=== PATIENT | male | born 1965 | race Caucasian/White ===

== ENCOUNTER 2017-07-28 18:59 | Inpatient (IN) | payer BC, OTHER ==
[~2017-07-28] VITALS: Ht 165.1 cm; Wt 115.2 kg
[~2017-07-28 18:59] MED LIST: ACTOS30 MG PO; ADVAIR HFA120 INHALA IH; ADVIL,NUPRIN,M200 MG PO; AMLODIPINE BESYL5 MG PO; Aldactone PO; Apresoline PO; Ascorbic Acid,Ester- PO; Aspirin E.C. PO; BENADRYL50 MG PO; BUMEX1 MG PO; CARVEDILOL25 MG PO; CHERATUSSIN AC473 ML PO; CLOPIDOGREL75 MG PO; COZAAR50 MG PO; Colace PO; Cozaar PO; DELTASONE20 M1 PO; DIOVAN80 MG; DIOVAN80 MG PO; DUONEB 2.5-0.5 M3 ML AEROSOL; Dulcolax PO; FLONASE16 G1 BOTH NARES; FUROSEMIDE40 MG PO; Folvite PO; K-Dur PO; LASIX40 MG PO; LEVAQUIN500 MG PO; LEVAQUIN750 MG PO; LEVEMIR FL100 UNIT/1 SC; LIPITOR20 MG PO; LOPRESSOR50 MG PO; LOSARTAN POTAS100 MG PO; LOVENOX100 MG/1 M SC; Lasix PO; Levaquin PO; Lopressor PO; METFORMIN HCL1000 MG PO; Maalox, Mylanta PO; Miralax, Glycolax PO; NIFEDIPINE ER90 MG PO; NITROSTAT0.4 MG SL; OXYCODONE HCL5 M1 PO; PIOGLITAZONE HC15 MG PO; PLAVIX75 MG PO; PREDNISONE10 MG PO; PREDNISONE20 MG PO; PROAIR HFA8.5 GM IH; Pepcid PO; SERTRALINE HCL100 MG; SERTRALINE HCL100 MG PO; SPIRIVA1 INHALATI IH; ST. JOSEPH ASPI81 MG PO; STIOLTO RESPIMAT4 GM IH; Senokot S,Pericolace PO; TYLENOL EXTRA500 MG PO; TYLENOL REGULA325 MG PO; Theragran PO; VENTOLIN HFA18 GM IH; VIAGRA50 MG PO; Xopenex IH; ZOLOFT100 MG PO; Zofran IV; Zoloft PO; oxyCODONE PO; predniSONE PO
[2017-07-28 19:59] LABS: HEMATOCRIT 32.4 % (38.0-50.0); MCH 34.2 PG (29.0-34.0); MCHC 34.3 G/DL (30.0-36.0); MCV 99.7 FL (86-99); MEAN PLAT.VOLUME 11.7 uM^3 (9.0-12.4); PLATELET COUNT 147 K/uL (156-360); RBC DIS.WIDTH-CV 14.2 % (11.8-14.6); RBC DIS.WIDTH-SD 51.1 % (39-53); RED BLOOD COUNT 3.25 M/uL (4.00-5.50); WHITE BLOOD COUNT 6.3 K/uL (4.1-10.2)
[2017-07-28 20:12] LABS: CHLORIDE 98 mEq/L (99-109); POTASSIUM 3.8 mEq/L (3.7-5.4); SODIUM 135 mEq/L (136-147)
[2017-07-28 20:15] LABS: ANION GAP 9 MEQ/L (2-14); GLUCOSE 148 mg/dL (70-99)
[2017-07-28 20:18] LABS: GFR ESTIMATE (CALCULATED) > 59 mL/min/; UREA NITROGEN (BUN) 22 mg/dL (9-23)
[2017-07-28 20:22] LABS: TROP-I INTERPRETATION NEGATIVE; TROPONIN-I 0.03 ng/mL (0.0-0.30)
[2017-07-29] VITALS: BP 142/68
[2017-07-29] MEDS ORDERED: PIOGLITAZONE HC15 MG PO (00:32)
[2017-07-29] MEDS ORDERED: ATENOLOL50 MG PO (00:34)
[2017-07-29] MEDS ORDERED: ALBUTEROL2.5 MG/3 M IH (00:38)
[2017-07-29] MEDS ORDERED: DIAZEPAM2 MG PO (00:39)
[2017-07-29] MEDS ORDERED: AMLODIPINE BESYL5 MG PO (00:51)
[2017-07-29] MEDS ORDERED: REVIA50 MG PO (01:13)
[2017-07-29 01:28] LABS: POINT-OF-CARE METER ID UU14174216
[2017-07-29 03:13] VITALS: BP 132/78
[2017-07-29 07:31] LABS: POINT-OF-CARE METER ID UU13113781
[2017-07-29 07:43] VITALS: BP 125/62
[2017-07-29 11:34] LABS: METH RESISTANT S AUREUS PCR POSITIVE (NEGATIVE)
[2017-07-29 11:35] LABS: PROBE CHECK PASS
[2017-07-29 11:54] VITALS: BP 135/56
[2017-07-29 17:00] VITALS: BP 111/54
[2017-07-29 19:20] VITALS: BP 125/55
[2017-07-29 22:49] LABS: POINT-OF-CARE METER ID UU14174216
[2017-07-30] VITALS (7 sets, daily range): BP systolic 118–148; BP diastolic 56–76
[2017-07-30 05:59] LABS: HEMATOCRIT 30.4 % (38.0-50.0); MCH 33.9 PG (29.0-34.0); MCHC 32.9 G/DL (30.0-36.0); MCV 103.1 FL (86-99); MEAN PLAT.VOLUME 12.1 uM^3 (9.0-12.4); PLATELET COUNT 135 K/uL (156-360); RBC DIS.WIDTH-CV 14.8 % (11.8-14.6); RBC DIS.WIDTH-SD 56.2 % (39-53); RED BLOOD COUNT 2.95 M/uL (4.00-5.50); WHITE BLOOD COUNT 6.6 K/uL (4.1-10.2)
[2017-07-30 06:10] LABS: ALKALINE PHOSPHATASE 50 IU/L (3-129); ANION GAP 9 MEQ/L (2-14); CHLORIDE 99 MEQ/L (99-109); GFR ESTIMATE (CALCULATED) 57 mL/min/; POTASSIUM 3.5 MEQ/L (3.7-5.4); SAMPLE HEMOLYSIS CHECK 0; SAMPLE ICTERIC CHECK 0; SAMPLE LIPEMIA CHECK 0; SODIUM 139 MEQ/L (136-147); TOTAL BILIRUBIN 0.6 MG/DL (0.0-1.0); UREA NITROGEN (BUN) 29 mg/dL (9-23)
[2017-07-30 06:20] LABS: GLUCOSE 108 mg/dL (70-99)
[2017-07-30 08:03] LABS: POINT-OF-CARE METER ID UU13113781
[2017-07-30 11:39] LABS: POINT-OF-CARE METER ID UU13113781
[2017-07-30 16:33] LABS: POINT-OF-CARE METER ID UU13113781
[2017-07-30 21:54] LABS: POINT-OF-CARE METER ID UU13113781
[2017-07-31 03:55] VITALS: BP 128/57
[2017-07-31 05:07] LABS: HEMATOCRIT 29.7 % (38.0-50.0); MCH 36.2 PG (29.0-34.0); MCHC 34.3 G/DL (30.0-36.0); MCV 105.3 FL (86-99); MEAN PLAT.VOLUME 12.3 uM^3 (9.0-12.4); PLATELET COUNT 135 K/uL (156-360); RBC DIS.WIDTH-CV 14.7 % (11.8-14.6); RBC DIS.WIDTH-SD 56.5 % (39-53); RED BLOOD COUNT 2.82 M/uL (4.00-5.50); WHITE BLOOD COUNT 6.5 K/uL (4.1-10.2)
[2017-07-31 05:47] LABS: ALKALINE PHOSPHATASE 54 IU/L (3-129); ANION GAP 9 MEQ/L (2-14); CHLORIDE 97 MEQ/L (99-109); GFR ESTIMATE (CALCULATED) > 59 mL/min/; GLUCOSE 85 mg/dL (70-99); POTASSIUM 3.9 MEQ/L (3.7-5.4); SAMPLE HEMOLYSIS CHECK 0; SAMPLE ICTERIC CHECK 0; SAMPLE LIPEMIA CHECK 0; SODIUM 139 MEQ/L (136-147); TOTAL BILIRUBIN 0.6 MG/DL (0.0-1.0); UREA NITROGEN (BUN) 32 mg/dL (9-23)
[2017-07-31 07:40] LABS: POINT-OF-CARE METER ID UU13113781
[2017-07-31 07:51] VITALS: BP 124/58
[2017-07-31 11:32] LABS: POINT-OF-CARE METER ID UU13113781
[2017-07-31 14:13] LABS: IRON 44 MCG/DL (35-150)
[2017-07-31 14:30] LABS: FERRITIN 241 NG/ML (22-322)
[2017-07-31] MEDS ORDERED: FEOSOL325 MG PO (15:02)
[2017-07-31] MEDS ORDERED: CARVEDILOL25 MG PO (15:12)
[2017-07-31] MEDS ORDERED: BUMEX2 MG PO (15:15)
== END 2017-07-31 17:05 | disposition home or self-care (01) | DRG 292 ==
LOC: EME 18:59 → 4EAST 21:30 → EDOF 21:30 → ENRESERV 22:00 → EDOF 22:20 → 4EAST 23:57 → ENPENDDIS 07-31 → 4EAST 07-31 17:05
PROVIDERS: Emergency Medicine; Family Medicine
DX: I11.0 Hypertensive heart disease with heart failure (principal); I50.23 Acute on chronic systolic (congestive) heart failure; E11.65 Type 2 diabetes mellitus with hyperglycemia; Z68.41 Body mass index [BMI] 40.0-44.9, adult; I25.10 Atherosclerotic heart disease of native coronary artery without angina pectoris; J44.9 Chronic obstructive pulmonary disease, unspecified; G47.30 Sleep apnea, unspecified; Z91.14 Patient's other noncompliance with medication regimen; E78.5 Hyperlipidemia, unspecified; I25.2 Old myocardial infarction; E66.9 Obesity, unspecified; I27.2 Other secondary pulmonary hypertension; I08.1 Rheumatic disorders of both mitral and tricuspid valves
CPT/HCPCS: 36415; 71010; 80048; 80053; 82728; 82948; 83540; 83880; 84466; 84484; 85025; 85027; 87641; 93005; 93306; 94640; 94640 76; 94660; 94799; 99202; 99281; 99285; J1815; J1940; J2930

== ENCOUNTER 2017-08-29 06:51 | Inpatient (IN) | payer BC, OTHER ==
[~2017-08-29] VITALS: Ht 165.1 cm; Wt 114.4 kg
[~2017-08-29 06:51] MED LIST changes: +ALBUTEROL2.5 MG/3 M IH; +ATENOLOL50 MG PO; +BUMEX2 MG PO; +DIAZEPAM2 MG PO; +FEOSOL325 MG PO; +REVIA50 MG PO
[2017-08-29 07:34] LABS: INTER. NORMALIZED RATIO 1.3; PROTHROMBIN TIME 15.3 SEC (10.2-12.9)
[2017-08-29 07:37] LABS: PTT 35.7 SEC (25-37)
[2017-08-29 07:44] LABS: BASOPHIL COUNT 0.1 K/uL (0-0.1); CHLORIDE 97 mEq/L (99-109); EOSINOPHIL (%) 0.6 % (0-5); EOSINOPHIL COUNT 0.1 K/uL (0-0.3); HEMATOCRIT 33.7 % (38.0-50.0); IMMATURE GRANULOCYTE (%) 0.4 % (0.0-0.7); INSTRUMENT ABS NEUTROPHIL CT 6.6 K/uL; LYMPHOCYTE COUNT 0.7 K/uL (1.0-2.8); MCH 33.8 PG (29.0-34.0); MCHC 33.5 G/DL (30.0-36.0); MCV 100.9 FL (86-99); MEAN PLAT.VOLUME 11.7 uM^3 (9.0-12.4); MONOCYTE (%) 5.9 % (3-12); MONOCYTE COUNT 0.5 K/uL (0-0.8); NEUTROPHIL (%) 83.5 % (45-76); NEUTROPHIL COUNT 6.6 K/uL (1.8-6.4); PLATELET COUNT 176 K/uL (156-360); POTASSIUM 3.4 mEq/L (3.7-5.4); RBC DIS.WIDTH-CV 14.3 % (11.8-14.6); RBC DIS.WIDTH-SD 52.5 % (39-53); RED BLOOD COUNT 3.34 M/uL (4.00-5.50); SODIUM 135 mEq/L (136-147)
[2017-08-29 07:45] LABS: GLUCOSE 142 mg/dL (70-99)
[2017-08-29 07:47] LABS: ANION GAP 13 MEQ/L (2-14)
[2017-08-29 07:49] LABS: GFR ESTIMATE (CALCULATED) > 59 mL/min/
[2017-08-29 07:50] LABS: TROP-I INTERPRETATION NEGATIVE; TROPONIN-I 0.02 ng/mL (0.0-0.30); UREA NITROGEN (BUN) 25 mg/dL (9-23)
[2017-08-29] MEDS ORDERED: SPIRIVA1 INHALATI IH (10:01)
[2017-08-29] MEDS ORDERED: CARVEDILOL25 MG PO (10:04)
[2017-08-29] MEDS ORDERED: ASPIR 8181 M1 PO (10:05)
[2017-08-29 14:57] LABS: TROP-I INTERPRETATION NEGATIVE; TROPONIN-I 0.03 ng/mL (0.0-0.30)
[2017-08-29 17:28] VITALS: BP 135/87
[2017-08-29 17:48] VITALS: BP 135/87
[2017-08-29 19:28] VITALS: BP 119/58
[2017-08-29 22:07] LABS: POINT-OF-CARE METER ID UU14208750
[2017-08-30] VITALS (8 sets, daily range): BP systolic 106–136; BP diastolic 55–66
[2017-08-30 06:49] LABS: HEMATOCRIT 32.5 % (38.0-50.0); MCHC 32.6 G/DL (30.0-36.0); MCV 101.2 FL (86-99); MEAN PLAT.VOLUME 12.2 uM^3 (9.0-12.4); PLATELET COUNT 169 K/uL (156-360); RBC DIS.WIDTH-CV 14.3 % (11.8-14.6); RBC DIS.WIDTH-SD 53.2 % (39-53); RED BLOOD COUNT 3.21 M/uL (4.00-5.50); WHITE BLOOD COUNT 6.8 K/uL (4.1-10.2)
[2017-08-30 07:09] LABS: ANION GAP 11 MEQ/L (2-14); CHLORIDE 95 MEQ/L (99-109); GFR ESTIMATE (CALCULATED) > 59 mL/min/; GLUCOSE 113 mg/dL (70-99); SAMPLE HEMOLYSIS CHECK 0; SAMPLE ICTERIC CHECK 0; SAMPLE LIPEMIA CHECK 0; SODIUM 136 MEQ/L (136-147); UREA NITROGEN (BUN) 25 mg/dL (9-23)
[2017-08-30 09:09] LABS: TYPE OF FLUID PLEURAL
[2017-08-30 10:02] LABS: BODY FLUID EOSINOPHILS 0 % (0-25); BODY FLUID RBC'S 3000 /MM^3 (0-100); BODY FLUID WBC'S 1125 /MM^3 (0-500); MONONUCLEAR WBC'S 70 %; POLYNUCLEAR WBC'S 30 % (0-25)
[2017-08-30 10:12] LABS: BODY FLUID LDH 206 IU/L; BODY FLUID PROTEIN 3.7 G/DL
[2017-08-30 11:36] LABS: POINT-OF-CARE METER ID UU14208750
[2017-08-30 16:59] LABS: POINT-OF-CARE METER ID UU14208750
[2017-08-30 22:30] LABS: POINT-OF-CARE METER ID UU14314084
[2017-08-31 03:30] VITALS: BP 116/58
[2017-08-31 06:59] LABS: EOSINOPHIL (%) 0.1 % (0-5); HEMATOCRIT 30.9 % (38.0-50.0); IMMATURE GRANULOCYTE (%) 0.3 % (0.0-0.7); INSTRUMENT ABS NEUTROPHIL CT 5.8 K/uL; LYMPHOCYTE COUNT 0.6 K/uL (1.0-2.8); MCH 34.1 PG (29.0-34.0); MCHC 33.7 G/DL (30.0-36.0); MCV 101.3 FL (86-99); MEAN PLAT.VOLUME 12.1 uM^3 (9.0-12.4); MONOCYTE (%) 6.7 % (3-12); MONOCYTE COUNT 0.5 K/uL (0-0.8); NEUTROPHIL (%) 84.2 % (45-76); NEUTROPHIL COUNT 5.8 K/uL (1.8-6.4); PLATELET COUNT 144 K/uL (156-360); RBC DIS.WIDTH-CV 14.2 % (11.8-14.6); RBC DIS.WIDTH-SD 52.8 % (39-53); RED BLOOD COUNT 3.05 M/uL (4.00-5.50); WHITE BLOOD COUNT 6.9 K/uL (4.1-10.2)
[2017-08-31 07:29] LABS: ANION GAP 10 MEQ/L (2-14); CHLORIDE 97 MEQ/L (99-109); GFR ESTIMATE (CALCULATED) > 59 mL/min/; GLUCOSE 112 mg/dL (70-99); POTASSIUM 3.4 MEQ/L (3.7-5.4); SAMPLE HEMOLYSIS CHECK 0; SAMPLE ICTERIC CHECK 0; SAMPLE LIPEMIA CHECK 0; SODIUM 136 MEQ/L (136-147); UREA NITROGEN (BUN) 25 mg/dL (9-23)
[2017-08-31 07:32] VITALS: BP 112/57
[2017-08-31 10:27] VITALS: BP 123/85
[2017-08-31 12:24] LABS: POINT-OF-CARE METER ID UU14208750
[2017-08-31 17:05] LABS: POINT-OF-CARE METER ID UU14208750
[2017-08-31 17:09] VITALS: BP 108/58
[2017-09-01 00:17] VITALS: BP 111/61
[2017-09-01 07:20] VITALS: BP 130/69
[2017-09-01 11:19] VITALS: BP 105/56
[2017-09-01] MEDS ORDERED: ADVAIR HFA120 INHALA IH (13:57)
[2017-09-01] MEDS ORDERED: PREDNISONE10 MG PO (13:57)
[2017-09-01] MEDS ORDERED: CARVEDILOL12.5 MG PO (13:57)
[2017-09-01] MEDS ORDERED: K-DUR20 MEQ PO (13:57)
[2017-09-01] MEDS ORDERED: LEVOFLOXACIN750 MG PO (13:57)
== END 2017-09-01 15:10 | disposition home or self-care (01) | DRG 291 ==
LOC: EME 06:51 → 2EAST 09:52 → EDOF 09:52 → ENRESERV 10:00 → CANRESERV 10:00 → EDOF 10:16 → ENRESERV 11:05 → 2EAST 17:00
PROVIDERS: Emergency Medicine; Family Medicine; Radiology Diagnostic Radiology
PROC: 0W993ZZ Drainage of Right Pleural Cavity, Percutaneous Approach (ICD-10-PCS; principal; 2017-08-30)
DX: I11.0 Hypertensive heart disease with heart failure (principal); J44.0 Chronic obstructive pulmonary disease with (acute) lower respiratory infection; J18.9 Pneumonia, unspecified organism; J44.1 Chronic obstructive pulmonary disease with (acute) exacerbation; I50.9 Heart failure, unspecified; E78.5 Hyperlipidemia, unspecified; E87.6 Hypokalemia; G47.33 Obstructive sleep apnea (adult) (pediatric); I25.10 Atherosclerotic heart disease of native coronary artery without angina pectoris; E66.01 Morbid (severe) obesity due to excess calories; Z68.41 Body mass index [BMI] 40.0-44.9, adult; D64.9 Anemia, unspecified; R09.02 Hypoxemia; Z95.2 Presence of prosthetic heart valve; Z87.891 Personal history of nicotine dependence; I27.20 Pulmonary hypertension, unspecified; I05.0 Rheumatic mitral stenosis; E11.9 Type 2 diabetes mellitus without complications
CPT/HCPCS: 71010; 76942; 80048; 82945; 82948; 83615 91; 83880; 83986 90; 84157; 84484; 85025; 85027; 85610; 85730; 87070; 87075; 87116; 87205; 87206; 88108; 88305; 89051; 90686; 93005; 94640; 94640 76; 94660; 94799; 99202; 99281; 99285; J1940; J1956; J7512

== ENCOUNTER → 2017-09-11 | Outpatient (CLI) | payer BC, OTHER ==
[~2017-09-11] MED LIST changes: +ASPIR 8181 M1 PO; +CARVEDILOL12.5 MG PO; +K-DUR20 MEQ PO; +LEVOFLOXACIN750 MG PO
[2017-09-11 14:53] LABS: TYPE OF FLUID PLEURAL
[2017-09-11 16:07] LABS: BODY FLUID EOSINOPHILS 0 % (0-25); BODY FLUID RBC'S 1000 /MM^3 (0-100); BODY FLUID WBC'S 582 /MM^3 (0-500); MONONUCLEAR WBC'S 86 %; POLYNUCLEAR WBC'S 14 % (0-25)
[2017-09-11 16:43] LABS: BODY FLUID LDH 196 IU/L; BODY FLUID PROTEIN 3.2 G/DL
== END | disposition home or self-care (01) ==
LOC: RAD 13:37 → EDSTATUS 14:00
PROVIDERS: Internal Medicine Pulmonary Disease
PROC: 0W993ZZ Drainage of Right Pleural Cavity, Percutaneous Approach (ICD-10-PCS; principal; 2017-09-11)
DX: J90 Pleural effusion, not elsewhere classified (principal)
CPT/HCPCS: 76942; 82945; 83615 91; 84157; 87070; 87075; 87205; 88108; 88305; 89051

== ENCOUNTER → 2017-10-01 | Outpatient (CLI) | payer BC ==
[2017-10-01 09:30] LABS: POINT-OF-CARE METER ID UU14174212
== END | disposition home or self-care (01) ==
LOC: OPR 08:21 → EDSTATUS 09:00
PROVIDERS: Internal Medicine Pulmonary Disease
PROC: 0W9930Z Drainage of Right Pleural Cavity with Drainage Device, Percutaneous Approach (ICD-10-PCS; principal; 2017-10-01)
DX: J90 Pleural effusion, not elsewhere classified (principal); J44.9 Chronic obstructive pulmonary disease, unspecified; G47.33 Obstructive sleep apnea (adult) (pediatric); I25.10 Atherosclerotic heart disease of native coronary artery without angina pectoris; I11.0 Hypertensive heart disease with heart failure; I50.9 Heart failure, unspecified; Z95.2 Presence of prosthetic heart valve; Z79.82 Long term (current) use of aspirin; Z79.02 Long term (current) use of antithrombotics/antiplatelets; Z88.0 Allergy status to penicillin; Z87.891 Personal history of nicotine dependence
CPT/HCPCS: 32557; 82948; J3010

== ENCOUNTER 2017-10-23 08:00 | Emergency (ER) | payer BC ==
[~2017-10-23] VITALS: Ht 165.1 cm; Wt 117.0 kg
[2017-10-23 09:57] LABS: HEMATOCRIT 30.5 % (38.0-50.0); MCH 34.8 PG (29.0-34.0); MCHC 34.4 G/DL (30.0-36.0); PLATELET COUNT 173 K/uL (156-360); RBC DIS.WIDTH-CV 14.6 % (11.8-14.6); RBC DIS.WIDTH-SD 54.4 % (39-53); RED BLOOD COUNT 3.02 M/uL (4.00-5.50); WHITE BLOOD COUNT 5.1 K/uL (4.1-10.2)
[2017-10-23 10:06] LABS: CHLORIDE 97 mEq/L (99-109); POTASSIUM 4.2 mEq/L (3.7-5.4); SODIUM 134 mEq/L (136-147)
[2017-10-23 10:08] LABS: GLUCOSE 92 mg/dL (70-99)
[2017-10-23 10:10] LABS: ANION GAP 12 MEQ/L (2-14)
[2017-10-23 10:12] LABS: GFR ESTIMATE (CALCULATED) > 59 mL/min/ (58.99-99999)
[2017-10-23 10:13] LABS: UREA NITROGEN (BUN) 29 mg/dL (9-23)
[2017-10-23 14:24] LABS: BODY FLUID RBC'S 1000 /MM^3 (0-100); BODY FLUID WBC'S 431 /MM^3 (0-500); TYPE OF FLUID PLEURAL
[2017-10-23 14:33] LABS: BODY FLUID EOSINOPHILS 2 % (0-25); MONONUCLEAR WBC'S 79 %; POLYNUCLEAR WBC'S 19 % (0-25)
[2017-10-23 15:08] LABS: BODY FLUID LDH 244 IU/L; BODY FLUID PROTEIN 3.8 G/DL
[2017-10-23 15:38] VITALS: BP 111/63
== END 2017-10-23 15:48 | disposition home or self-care (01) ==
LOC: EME 08:00
PROVIDERS: Emergency Medicine
DX: J90 Pleural effusion, not elsewhere classified (principal); I11.0 Hypertensive heart disease with heart failure; I50.9 Heart failure, unspecified; J44.9 Chronic obstructive pulmonary disease, unspecified; I25.2 Old myocardial infarction; E11.9 Type 2 diabetes mellitus without complications; F32.9 Major depressive disorder, single episode, unspecified; Z87.891 Personal history of nicotine dependence; Z95.2 Presence of prosthetic heart valve; Z79.82 Long term (current) use of aspirin; Z79.84 Long term (current) use of oral hypoglycemic drugs; Z88.0 Allergy status to penicillin
CPT/HCPCS: 71020; 80048; 82945; 83605; 83615 91; 84157; 85027; 87070; 87205; 89051; 99281; 99285

== ENCOUNTER → 2017-10-31 | Outpatient (CLI) | payer BC | END | disposition home or self-care (01) | LOC: RAD 10:54 | PROC: 0W993ZZ Drainage of Right Pleural Cavity, Percutaneous Approach (ICD-10-PCS; principal; 2017-10-31) | DX: J98.6 Disorders of diaphragm (principal); R91.8 Other nonspecific abnormal finding of lung field; J98.11 Atelectasis; T80.212A Local infection due to central venous catheter, initial encounter; B95.62 Methicillin resistant Staphylococcus aureus infection as the cause of diseases classified elsewhere; Z16.11 Resistance to penicillins | CPT/HCPCS: 32552; 71010; 71020; 76942; 87070; 87075; 87077; 87147; 87186; 87205 ==

== ENCOUNTER → 2017-11-13 | Outpatient (CLI) | payer BC ==
[2017-11-13 13:36] LABS: INTER. NORMALIZED RATIO 1.2
[2017-11-13 13:39] LABS: PTT 33.4 SEC (25-37)
== END | disposition home or self-care (01) ==
LOC: OPR 12:37 → EDSTATUS 13:00
PROVIDERS: Internal Medicine Pulmonary Disease
PROC: 0W993ZZ Drainage of Right Pleural Cavity, Percutaneous Approach (ICD-10-PCS; principal; 2017-11-13)
DX: I50.9 Heart failure, unspecified (principal); J90 Pleural effusion, not elsewhere classified; I10 Essential (primary) hypertension; I27.20 Pulmonary hypertension, unspecified; J44.9 Chronic obstructive pulmonary disease, unspecified; I25.10 Atherosclerotic heart disease of native coronary artery without angina pectoris; I34.0 Nonrheumatic mitral (valve) insufficiency; Z95.2 Presence of prosthetic heart valve; Z87.891 Personal history of nicotine dependence; Z79.82 Long term (current) use of aspirin
CPT/HCPCS: 76942; 85610; 85730; C1769; J3010

== ENCOUNTER → 2017-11-22 | Outpatient (CLI) | payer BC ==
[~2017-11-22] MED LIST changes: +FERRETTS325 MG PO; +POTASSIUM CHLO20 ME2 PO
== END | disposition home or self-care (01) ==
LOC: RAD 13:38 → EDSTATUS 14:30
PROC: 0W993ZZ Drainage of Right Pleural Cavity, Percutaneous Approach (ICD-10-PCS; principal; 2017-11-22)
DX: J90 Pleural effusion, not elsewhere classified (principal)
CPT/HCPCS: 76942

== ENCOUNTER → 2017-11-29 | Outpatient (CLI) | payer BC ==
[2017-11-29 09:52] LABS: HEMATOCRIT 31.1 % (38.0-50.0); MCH 32.9 PG (29.0-34.0); MCHC 32.2 G/DL (30.0-36.0); MCV 102.3 FL (86-99); PLATELET COUNT 155 K/uL (156-360); RBC DIS.WIDTH-CV 14.9 % (11.8-14.6); RBC DIS.WIDTH-SD 55.3 % (39-53); RED BLOOD COUNT 3.04 M/uL (4.00-5.50); WHITE BLOOD COUNT 6.4 K/uL (4.1-10.2)
== END | disposition home or self-care (01) ==
LOC: OPR 08:57 → EDSTATUS 09:00 → OPR 09:00
PROVIDERS: Internal Medicine Pulmonary Disease
PROC: 0B9N30Z Drainage of Right Pleura with Drainage Device, Percutaneous Approach (ICD-10-PCS; principal; 2017-11-29)
DX: J90 Pleural effusion, not elsewhere classified (principal); J44.9 Chronic obstructive pulmonary disease, unspecified; I27.20 Pulmonary hypertension, unspecified; I50.9 Heart failure, unspecified; Z87.891 Personal history of nicotine dependence; G47.33 Obstructive sleep apnea (adult) (pediatric); E66.9 Obesity, unspecified; Z68.41 Body mass index [BMI] 40.0-44.9, adult; I25.10 Atherosclerotic heart disease of native coronary artery without angina pectoris; Z79.84 Long term (current) use of oral hypoglycemic drugs; Z79.82 Long term (current) use of aspirin; Z95.2 Presence of prosthetic heart valve; Z88.0 Allergy status to penicillin
CPT/HCPCS: 32557; 71250; 85027; C1729; J3010

== ENCOUNTER → 2017-12-31 | Outpatient (CLI) | payer BC | END | disposition home or self-care (01) | LOC: OPR 08:21 → EDSTATUS 09:00 | PROVIDERS: Internal Medicine Pulmonary Disease | PROC: 3E0L3GC Introduction of Other Therapeutic Substance into Pleural Cavity, Percutaneous Approach (ICD-10-PCS; principal; 2017-12-31) | DX: J90 Pleural effusion, not elsewhere classified (principal) | CPT/HCPCS: 32560; 82948; J3010 ==

== ENCOUNTER 2018-01-08 17:22 | Inpatient (IN) | payer BC ==
[~2018-01-08] VITALS: Ht 165.1 cm; Wt 117.5 kg
[2018-01-08 18:17] LABS: HEMATOCRIT 28.3 % (38.0-50.0); HEMOGLOBIN 9.4 G/DL (12.5-16.6); MCH 34.9 PG (29.0-34.0); MCHC 33.2 G/DL (30.0-36.0); MCV 105.2 FL (86-99); PLATELET COUNT 215 K/uL (156-360); RBC DIS.WIDTH-CV 16.5 % (11.8-14.6); RBC DIS.WIDTH-SD 64.1 % (39-53); RED BLOOD COUNT 2.69 M/uL (4.00-5.50); WHITE BLOOD COUNT 5.9 K/uL (4.1-10.2)
[2018-01-08 18:31] LABS: CHLORIDE 104 mEq/L (99-109); POTASSIUM 3.5 mEq/L (3.7-5.4); SODIUM 144 mEq/L (136-147)
[2018-01-08 18:33] LABS: GLUCOSE 95 mg/dL (70-99)
[2018-01-08 18:37] LABS: GFR ESTIMATE (CALCULATED) > 59 mL/min/ (58.99-99999)
[2018-01-08 18:38] LABS: UREA NITROGEN (BUN) 13 mg/dL (9-23)
[2018-01-08 18:42] LABS: TROP-I INTERPRETATION NEGATIVE; TROPONIN-I 0.03 ng/mL (0.0-0.30)
[2018-01-08] MEDS ORDERED: NITROSTAT0.4 MG SL (19:27)
[2018-01-08] MEDS ORDERED: BUMEX2 MG PO (19:31)
[2018-01-08] MEDS ORDERED: SPIRIVA RESPIMAT4 GM IH (19:33)
[2018-01-08] MEDS ORDERED: COREG12.5 M1 PO (19:35)
[2018-01-08] MEDS ORDERED: ADVAIR HFA120 INHALA IH (19:37)
[2018-01-08 22:22] VITALS: BP 167/69
[2018-01-08 22:47] LABS: COLOR ND ((YELLOW))
[2018-01-08 22:49] LABS: APPEARANCE ND ((CLEAR)); LEUKOCYTES ND; NITRITE ND; PH, URINE ND (5-8); PROTEIN (STRIP) ND; SPECIFIC GRAVITY ND (1.000-1.030)
[2018-01-08 22:50] LABS: BILIRUBIN ND; GLUCOSE (STRIP) ND; KETONES ND; UROBILINOGEN ND MG/DL (0.2-1.0)
[2018-01-08 22:51] LABS: BLOOD ND; UCUL ADDED? ND; URINE COMMENT ND; URINE COMMENT 1 ND
[2018-01-08 23:49] LABS: APPEARANCE CLEAR ((CLEAR)); BILIRUBIN NEGATIVE; BLOOD SMALL; COLOR YELLOW ((YELLOW)); GLUCOSE (STRIP) NEGATIVE; KETONES NEGATIVE; LEUKOCYTES NEGATIVE; NITRITE NEGATIVE; PROTEIN (STRIP) 30; SPECIFIC GRAVITY 1.015 (1.000-1.030); UROBILINOGEN 0.2 MG/DL (0.2-1.0)
[2018-01-08 23:54] LABS: BACTERIA NONE SEEN /HPF; EPITHELIAL CELLS RARE /HPF; RED BLOOD CELLS 0-5 /HPF (0-5); UCUL ADDED? NO; WHITE BLOOD CELLS 0-5 /HPF (0-5)
[2018-01-08 23:55] LABS: HYALINE CASTS 0-5 /LPF; MUCUS TRACE /LPF
[2018-01-09 01:02] LABS: TROP-I INTERPRETATION NEGATIVE; TROPONIN-I 0.06 ng/mL (0.0-0.30)
[2018-01-09 04:00] VITALS: BP 140/76
[2018-01-09 05:13] LABS: HEMATOCRIT 27.5 % (38.0-50.0); MCH 34.4 PG (29.0-34.0); MCHC 32.7 G/DL (30.0-36.0); PLATELET COUNT 207 K/uL (156-360); RBC DIS.WIDTH-CV 16.4 % (11.8-14.6); RBC DIS.WIDTH-SD 63.3 % (39-53); RED BLOOD COUNT 2.62 M/uL (4.00-5.50); WHITE BLOOD COUNT 5.1 K/uL (4.1-10.2)
[2018-01-09 05:36] LABS: CHLORIDE 98 MEQ/L (99-109); GFR ESTIMATE (CALCULATED) > 59 mL/min/ (58.99-99999); GLUCOSE 134 mg/dL (70-99); POTASSIUM 3.6 MEQ/L (3.7-5.4); SODIUM 138 MEQ/L (136-147); UREA NITROGEN (BUN) 15 mg/dL (9-23)
[2018-01-09 05:37] LABS: TROP-I INTERPRETATION NEGATIVE; TROPONIN-I 0.05 ng/mL (0.0-0.30)
[2018-01-09 07:41] LABS: MAGNESIUM 1.9 mg/dl (1.3-2.7)
[2018-01-09 09:30] VITALS: BP 145/65
[2018-01-09 11:35] VITALS: BP 134/78
[2018-01-09 12:01] LABS: BASE EXCESS 5.8 mEq/L (-3 to +3); BICARBONATE 30.6 mEq/L (22-26); CARBOXY HGB 2.6 % (0-5); COMMENTS - BLOOD GASES A+C+; DEVICE CPAP; O2 FLOW 4 L/MIN; PCO2 45 mm Hg (35-45); PO2 85 mm Hg (80-100); SITE RR; TOTAL RESP RATE 20 resp/min; pH 7.44 (7.35-7.45)
[2018-01-09 16:12] VITALS: BP 143/81
[2018-01-09 20:15] VITALS: BP 110/53
[2018-01-09 23:17] VITALS: BP 112/53
[2018-01-10 03:35] VITALS: BP 104/51
[2018-01-10 05:28] LABS: BASOPHIL (%) 0.1 % (0-1); EOSINOPHIL (%) 0 % (0-5); HEMATOCRIT 27.2 % (38.0-50.0); HEMOGLOBIN 8.9 G/DL (12.5-16.6); IMMATURE GRANULOCYTE (%) 0.9 % (0.0-0.7); LYMPHOCYTE (%) 2.6 % (15-42); LYMPHOCYTE COUNT 0.3 K/uL (1.0-2.8); MCH 34.1 PG (29.0-34.0); MCHC 32.7 G/DL (30.0-36.0); MCV 104.2 FL (86-99); MONOCYTE (%) 4.6 % (3-12); MONOCYTE COUNT 0.5 K/uL (0-0.8); NEUTROPHIL (%) 91.8 % (45-76); PLATELET COUNT 206 K/uL (156-360); RBC DIS.WIDTH-CV 15.9 % (11.8-14.6); RBC DIS.WIDTH-SD 61.2 % (39-53); RED BLOOD COUNT 2.61 M/uL (4.00-5.50); WHITE BLOOD COUNT 9.8 K/uL (4.1-10.2)
[2018-01-10 05:51] LABS: ALBUMIN 3.3 G/DL (3.2-4.8); ALKALINE PHOSPHATASE 55 IU/L (3-129); ALT (GPT) 15 IU/L (3-49); AST (GOT) 22 IU/L (2-34); CHLORIDE 99 MEQ/L (99-109); CREATININE 1.3 MG/DL (0.6-1.3); GFR ESTIMATE (CALCULATED) > 59 mL/min/ (58.99-99999); GLUCOSE 151 mg/dL (70-99); POTASSIUM 3.9 MEQ/L (3.7-5.4); SODIUM 139 MEQ/L (136-147); TOTAL PROTEIN 5.8 G/DL (6.4-8.3)
[2018-01-10 05:55] LABS: TOTAL BILIRUBIN 0.6 MG/DL (0.0-1.0); UREA NITROGEN (BUN) 23 mg/dL (9-23)
[2018-01-10 08:15] VITALS: BP 110/58
[2018-01-10 11:22] VITALS: BP 115/58
[2018-01-10 16:03] VITALS: BP 119/64
[2018-01-10 19:09] VITALS: BP 113/56
[2018-01-11 00:24] VITALS: BP 125/62
[2018-01-11 04:35] VITALS: BP 133/66
[2018-01-11 05:26] LABS: BASOPHIL (%) 0.1 % (0-1); EOSINOPHIL (%) 0 % (0-5); HEMATOCRIT 26.5 % (38.0-50.0); HEMOGLOBIN 8.5 G/DL (12.5-16.6); IMMATURE GRANULOCYTE (%) 0.7 % (0.0-0.7); LYMPHOCYTE (%) 4.8 % (15-42); LYMPHOCYTE COUNT 0.4 K/uL (1.0-2.8); MCH 33.2 PG (29.0-34.0); MCHC 32.1 G/DL (30.0-36.0); MCV 103.5 FL (86-99); MONOCYTE (%) 4.9 % (3-12); MONOCYTE COUNT 0.4 K/uL (0-0.8); NEUTROPHIL (%) 89.5 % (45-76); NEUTROPHIL COUNT 7.3 K/uL (1.8-6.4); PLATELET COUNT 208 K/uL (156-360); RBC DIS.WIDTH-CV 15.9 % (11.8-14.6); RBC DIS.WIDTH-SD 60.6 % (39-53); RED BLOOD COUNT 2.56 M/uL (4.00-5.50); WHITE BLOOD COUNT 8.2 K/uL (4.1-10.2)
[2018-01-11 05:55] LABS: ALBUMIN 3.2 G/DL (3.2-4.8); ALKALINE PHOSPHATASE 54 IU/L (3-129); ALT (GPT) 14 IU/L (3-49); AST (GOT) 19 IU/L (2-34); CHLORIDE 99 MEQ/L (99-109); CREATININE 1.3 MG/DL (0.6-1.3); GFR ESTIMATE (CALCULATED) > 59 mL/min/ (58.99-99999); GLUCOSE 146 mg/dL (70-99); POTASSIUM 3.7 MEQ/L (3.7-5.4); SODIUM 137 MEQ/L (136-147); TOTAL BILIRUBIN 0.5 MG/DL (0.0-1.0); TOTAL PROTEIN 5.6 G/DL (6.4-8.3); UREA NITROGEN (BUN) 27 mg/dL (9-23)
[2018-01-11 07:51] VITALS: BP 136/79
[2018-01-11 11:04] VITALS: BP 134/60
[2018-01-11] MEDS ORDERED: LEVOFLOXACIN750 MG PO (12:46)
[2018-01-11] MEDS ORDERED: PREDNISONE20 MG PO (12:46)
[2018-01-11 15:16] VITALS: BP 131/59
== END 2018-01-11 17:26 | disposition home or self-care (01) | DRG 191 ==
LOC: EME 17:22 → EDOF 20:44 → 5WEST 20:44 → ENRESERV 20:45 → 5WEST 22:16 → ENRESERV 01-09 10:50 → CANRESERV 01-09 10:50 → 5WEST 01-09 11:02
PROVIDERS: Emergency Medicine; Family Medicine; Hospitalist
DX: J44.1 Chronic obstructive pulmonary disease with (acute) exacerbation (principal); J96.11 Chronic respiratory failure with hypoxia; Z99.81 Dependence on supplemental oxygen; I11.0 Hypertensive heart disease with heart failure; E11.9 Type 2 diabetes mellitus without complications; E66.01 Morbid (severe) obesity due to excess calories; Z68.41 Body mass index [BMI] 40.0-44.9, adult; G47.33 Obstructive sleep apnea (adult) (pediatric); I25.2 Old myocardial infarction; F10.20 Alcohol dependence, uncomplicated; E78.5 Hyperlipidemia, unspecified; D64.9 Anemia, unspecified; I25.10 Atherosclerotic heart disease of native coronary artery without angina pectoris; I34.0 Nonrheumatic mitral (valve) insufficiency; Z87.891 Personal history of nicotine dependence; Z95.2 Presence of prosthetic heart valve; I27.20 Pulmonary hypertension, unspecified
CPT/HCPCS: 36415; 36600; 71046; 80048; 80053; 80061; 81003; 82565; 82803; 82948; 83036; 83735; 83880; 84484; 84520; 85025; 85027; 85379; 87040; 87070; 87205; 87502; 93005; 93970; 94640; 94640 76; 94799; 99202; 99281; 99285; G0378; J1650; J1756; J1815; J1940; J1956; J2930; J7050; J7512

== ENCOUNTER → 2018-03-28 | Outpatient (CLI) | payer OTHER ==
[~2018-03-28] MED LIST changes: +COREG12.5 M1 PO; +SPIRIVA RESPIMAT4 GM IH
== END | disposition home or self-care (01) ==
LOC: RAD 13:00
PROC: 0WP930Z Removal of Drainage Device from Right Pleural Cavity, Percutaneous Approach (ICD-10-PCS; principal; 2018-03-28)
DX: J90 Pleural effusion, not elsewhere classified (principal)
CPT/HCPCS: 71045

== ENCOUNTER 2018-04-07 14:42 | Inpatient (IN) | payer OTHER ==
[~2018-04-07] VITALS: Ht 165.1 cm; Wt 96.3 kg
[2018-04-07 15:18] LABS: HEMATOCRIT 30.6 % (38.0-50.0); HEMOGLOBIN 9.8 G/DL (12.5-16.6); MCH 33.1 PG (29.0-34.0); MCV 103.4 FL (86-99); PLATELET COUNT 205 K/uL (156-360); RBC DIS.WIDTH-CV 16.6 % (11.8-14.6); RBC DIS.WIDTH-SD 62.7 % (39-53); RED BLOOD COUNT 2.96 M/uL (4.00-5.50); WHITE BLOOD COUNT 6.7 K/uL (4.1-10.2)
[2018-04-07 15:29] LABS: INTER. NORMALIZED RATIO 1.4
[2018-04-07 15:31] LABS: PTT 33.4 SEC (25-37)
[2018-04-07 15:35] LABS: ALBUMIN 3.7 g/dL (3.2-4.8); CHLORIDE 102 mEq/L (99-109); POTASSIUM 3.7 mEq/L (3.7-5.4); SODIUM 140 mEq/L (136-147)
[2018-04-07 15:37] LABS: GLUCOSE 111 mg/dL (70-99); TOTAL PROTEIN 7.5 g/dL (6.4-8.3)
[2018-04-07 15:39] LABS: TOTAL BILIRUBIN 1.3 mg/dL (0.0-1.0)
[2018-04-07 15:41] LABS: ALKALINE PHOSPHATASE 106 IU/L (3-129); CREATININE 1.2 mg/dL (0.6-1.3); GFR ESTIMATE (CALCULATED) > 59 mL/min/ (58.99-99999)
[2018-04-07 15:42] LABS: UREA NITROGEN (BUN) 23 mg/dL (9-23)
[2018-04-07 15:43] LABS: AST (GOT) 34 IU/L (2-34); TROP-I INTERPRETATION NEGATIVE; TROPONIN-I 0.04 ng/mL (0.0-0.30)
[2018-04-07 15:44] LABS: ALT (GPT) 24 IU/L (3-49)
[2018-04-07 20:45] VITALS: BP 139/74
[2018-04-07 22:56] LABS: IRON 32 MCG/DL (35-150); TRANSFERRIN (TIBC) 281.8 mg/dL (215-380); TRANSFERRIN SATUR. 11 % (20-55)
[2018-04-07 23:03] LABS: THYROTROPIN (TSH) 5.6 MIU/L (0.4-5.5)
[2018-04-07 23:09] LABS: FERRITIN 237 NG/ML (22-322)
[2018-04-07 23:13] LABS: FOLIC ACID (FOLATE) 8.7 NG/ML (5.0-22.0)
[2018-04-08] VITALS (7 sets, daily range): BP systolic 100–148; BP diastolic 52–77
[2018-04-09 06:27] LABS: BASOPHIL (%) 0.9 % (0-1); EOSINOPHIL (%) 3.8 % (0-5); EOSINOPHIL COUNT 0.2 K/uL (0-0.3); HEMATOCRIT 26.2 % (38.0-50.0); HEMOGLOBIN 8.2 G/DL (12.5-16.6); IMMATURE GRANULOCYTE (%) 0.2 % (0.0-0.7); LYMPHOCYTE (%) 11.7 % (15-42); LYMPHOCYTE COUNT 0.5 K/uL (1.0-2.8); MCH 32.7 PG (29.0-34.0); MCHC 31.3 G/DL (30.0-36.0); MCV 104.4 FL (86-99); MONOCYTE (%) 7.3 % (3-12); MONOCYTE COUNT 0.3 K/uL (0-0.8); NEUTROPHIL (%) 76.1 % (45-76); NEUTROPHIL COUNT 3.2 K/uL (1.8-6.4); PLATELET COUNT 150 K/uL (156-360); RBC DIS.WIDTH-CV 16.6 % (11.8-14.6); RED BLOOD COUNT 2.51 M/uL (4.00-5.50); WHITE BLOOD COUNT 4.3 K/uL (4.1-10.2)
[2018-04-09 06:53] LABS: ALBUMIN 3.3 G/DL (3.2-4.8); ALKALINE PHOSPHATASE 81 IU/L (3-129); ALT (GPT) 16 IU/L (3-49); AST (GOT) 21 IU/L (2-34); CHLORIDE 101 MEQ/L (99-109); CREATININE 1.1 MG/DL (0.6-1.3); GFR ESTIMATE (CALCULATED) > 59 mL/min/ (58.99-99999); GLUCOSE 99 mg/dL (70-99); MAGNESIUM 1.7 mg/dl (1.3-2.7); PHOSPHORUS 3.1 mg/dL (2.5-4.9); POTASSIUM 3.4 MEQ/L (3.7-5.4); SODIUM 140 MEQ/L (136-147); TOTAL BILIRUBIN 0.8 MG/DL (0.0-1.0); TOTAL PROTEIN 6.2 G/DL (6.4-8.3); UREA NITROGEN (BUN) 21 mg/dL (9-23); URIC ACID 12.9 mg/dL (3.1-9.2)
[2018-04-09 07:20] VITALS: BP 118/58
[2018-04-09 11:01] LABS: HEPATITIS B SURFACE ANTIGEN Nonreactive
[2018-04-09 11:02] LABS: HEPATITIS C ANTIBODY Nonreactive
[2018-04-09 11:04] LABS: ANTI-HEPATITIS A VIRUS (IGM) Nonreactive; ANTI-HEPATITIS B CORE (IGM) Nonreactive
[2018-04-09 11:15] VITALS: BP 106/52
[2018-04-09 14:14] LABS: GAMMA-GT 32 IU/L (4-73)
[2018-04-09 15:40] VITALS: BP 108/55
[2018-04-09 20:24] VITALS: BP 118/55
[2018-04-10] VITALS (7 sets, daily range): BP systolic 104–129; BP diastolic 54–61
[2018-04-10 04:39] LABS: APPEARANCE CLEAR ((CLEAR)); BILIRUBIN NEGATIVE; BLOOD NEGATIVE; COLOR YELLOW ((YELLOW)); GLUCOSE (STRIP) NEGATIVE; KETONES NEGATIVE; LEUKOCYTES NEGATIVE; NITRITE NEGATIVE; PROTEIN (STRIP) 30; SPECIFIC GRAVITY 1.021 (1.000-1.030); UROBILINOGEN 0.2 MG/DL (0.2-1.0)
[2018-04-10 06:52] LABS: BASOPHIL (%) 0.9 % (0-1); EOSINOPHIL (%) 3.5 % (0-5); EOSINOPHIL COUNT 0.2 K/uL (0-0.3); HEMATOCRIT 27.3 % (38.0-50.0); HEMOGLOBIN 8.3 G/DL (12.5-16.6); IMMATURE GRANULOCYTE (%) 0.2 % (0.0-0.7); LYMPHOCYTE (%) 14.2 % (15-42); LYMPHOCYTE COUNT 0.6 K/uL (1.0-2.8); MCH 31.6 PG (29.0-34.0); MCHC 30.4 G/DL (30.0-36.0); MCV 103.8 FL (86-99); MONOCYTE (%) 8.6 % (3-12); MONOCYTE COUNT 0.4 K/uL (0-0.8); NEUTROPHIL (%) 72.6 % (45-76); NEUTROPHIL COUNT 3.1 K/uL (1.8-6.4); PLATELET COUNT 156 K/uL (156-360); RBC DIS.WIDTH-CV 16.3 % (11.8-14.6); RBC DIS.WIDTH-SD 62.1 % (39-53); RED BLOOD COUNT 2.63 M/uL (4.00-5.50); WHITE BLOOD COUNT 4.3 K/uL (4.1-10.2)
[2018-04-10 07:19] LABS: CHLORIDE 98 MEQ/L (99-109); CREATININE 1.3 MG/DL (0.6-1.3); GFR ESTIMATE (CALCULATED) > 59 mL/min/ (58.99-99999); GLUCOSE 91 mg/dL (70-99); MAGNESIUM 1.9 mg/dl (1.3-2.7); PHOSPHORUS 3.6 mg/dL (2.5-4.9); SODIUM 138 MEQ/L (136-147); UREA NITROGEN (BUN) 25 mg/dL (9-23)
[2018-04-11 06:46] LABS: BASOPHIL (%) 1.3 % (0-1); BASOPHIL COUNT 0.1 K/uL (0-0.1); EOSINOPHIL (%) 1.3 % (0-5); EOSINOPHIL COUNT 0.1 K/uL (0-0.3); HEMATOCRIT 29.9 % (38.0-50.0); HEMOGLOBIN 9.3 G/DL (12.5-16.6); IMMATURE GRANULOCYTE (%) 0.3 % (0.0-0.7); LYMPHOCYTE (%) 10.4 % (15-42); LYMPHOCYTE COUNT 0.6 K/uL (1.0-2.8); MCH 32.1 PG (29.0-34.0); MCHC 31.1 G/DL (30.0-36.0); MCV 103.1 FL (86-99); MONOCYTE (%) 8.5 % (3-12); MONOCYTE COUNT 0.5 K/uL (0-0.8); NEUTROPHIL (%) 78.2 % (45-76); NEUTROPHIL COUNT 4.7 K/uL (1.8-6.4); PLATELET COUNT 173 K/uL (156-360); RBC DIS.WIDTH-CV 15.9 % (11.8-14.6); RBC DIS.WIDTH-SD 61.4 % (39-53)
[2018-04-11 07:05] VITALS: BP 113/51
[2018-04-11 07:16] LABS: CHLORIDE 98 MEQ/L (99-109); CREATININE 1.4 MG/DL (0.6-1.3); GFR ESTIMATE (CALCULATED) 56 mL/min/ (58.99-99999); GLUCOSE 89 mg/dL (70-99); POTASSIUM 4.4 MEQ/L (3.7-5.4); SODIUM 136 MEQ/L (136-147); UREA NITROGEN (BUN) 27 mg/dL (9-23)
[2018-04-11 11:05] VITALS: BP 109/56
[2018-04-11 17:52] VITALS: BP 111/57
[2018-04-11 19:40] VITALS: BP 100/49
[2018-04-12 00:28] VITALS: BP 100/55
[2018-04-12 04:05] VITALS: BP 104/57
[2018-04-12 05:05] LABS: BASOPHIL (%) 1.2 % (0-1); BASOPHIL COUNT 0.1 K/uL (0-0.1); EOSINOPHIL COUNT 0.1 K/uL (0-0.3); HEMATOCRIT 27.4 % (38.0-50.0); HEMOGLOBIN 8.4 G/DL (12.5-16.6); IMMATURE GRANULOCYTE (%) 0.4 % (0.0-0.7); LYMPHOCYTE (%) 9.7 % (15-42); LYMPHOCYTE COUNT 0.5 K/uL (1.0-2.8); MCH 31.2 PG (29.0-34.0); MCHC 30.7 G/DL (30.0-36.0); MCV 101.9 FL (86-99); MONOCYTE (%) 8.3 % (3-12); MONOCYTE COUNT 0.4 K/uL (0-0.8); NEUTROPHIL (%) 78.4 % (45-76); PLATELET COUNT 163 K/uL (156-360); RBC DIS.WIDTH-CV 15.9 % (11.8-14.6); RBC DIS.WIDTH-SD 59.1 % (39-53); RED BLOOD COUNT 2.69 M/uL (4.00-5.50)
[2018-04-12 05:54] LABS: CHLORIDE 99 MEQ/L (99-109); CREATININE 1.5 MG/DL (0.6-1.3); GFR ESTIMATE (CALCULATED) 52 mL/min/ (58.99-99999); GLUCOSE 96 mg/dL (70-99); POTASSIUM 3.8 MEQ/L (3.7-5.4); SODIUM 136 MEQ/L (136-147); UREA NITROGEN (BUN) 29 mg/dL (9-23)
[2018-04-12 07:15] VITALS: BP 111/57
[2018-04-12 11:20] VITALS: BP 115/61
[2018-04-12 15:10] VITALS: BP 111/56
[2018-04-12 20:11] VITALS: BP 121/59
[2018-04-13] VITALS (7 sets, daily range): BP systolic 107–130; BP diastolic 53–79
[2018-04-13 08:08] LABS: ALBUMIN 3.3 G/DL (3.2-4.8); CHLORIDE 98 MEQ/L (99-109); CREATININE 1.5 MG/DL (0.6-1.3); GFR ESTIMATE (CALCULATED) 52 mL/min/ (58.99-99999); GLUCOSE 92 mg/dL (70-99); PHOSPHORUS 4.2 mg/dL (2.5-4.9); SODIUM 137 MEQ/L (136-147); UREA NITROGEN (BUN) 36 mg/dL (9-23)
[2018-04-14] VITALS (8 sets, daily range): BP systolic 95–135; BP diastolic 53–80
[2018-04-14 07:08] LABS: ALBUMIN 3.3 G/DL (3.2-4.8); CHLORIDE 98 MEQ/L (99-109); CREATININE 1.4 MG/DL (0.6-1.3); GFR ESTIMATE (CALCULATED) 56 mL/min/ (58.99-99999); GLUCOSE 96 mg/dL (70-99); PHOSPHORUS 3.6 mg/dL (2.5-4.9); POTASSIUM 4.4 MEQ/L (3.7-5.4); SODIUM 137 MEQ/L (136-147); UREA NITROGEN (BUN) 35 mg/dL (9-23)
[2018-04-15] VITALS (7 sets, daily range): BP systolic 94–138; BP diastolic 48–64
[2018-04-15 06:37] LABS: ALBUMIN 3.3 G/DL (3.2-4.8); CHLORIDE 95 MEQ/L (99-109); CREATININE 1.4 MG/DL (0.6-1.3); GFR ESTIMATE (CALCULATED) 56 mL/min/ (58.99-99999); GLUCOSE 97 mg/dL (70-99); PHOSPHORUS 3.5 mg/dL (2.5-4.9); SODIUM 137 MEQ/L (136-147); UREA NITROGEN (BUN) 33 mg/dL (9-23)
[2018-04-15 06:38] LABS: POTASSIUM 3.4 MEQ/L (3.7-5.4)
[2018-04-15 16:12] LABS: CHLORIDE 94 MEQ/L (99-109); CREATININE 1.3 MG/DL (0.6-1.3); GFR ESTIMATE (CALCULATED) > 59 mL/min/ (58.99-99999); GLUCOSE 108 mg/dL (70-99); POTASSIUM 3.6 MEQ/L (3.7-5.4); SODIUM 136 MEQ/L (136-147); UREA NITROGEN (BUN) 32 mg/dL (9-23)
[2018-04-16 03:44] VITALS: BP 113/56
[2018-04-16 06:08] LABS: BASOPHIL (%) 1.2 % (0-1); BASOPHIL COUNT 0.1 K/uL (0-0.1); EOSINOPHIL (%) 1.7 % (0-5); EOSINOPHIL COUNT 0.1 K/uL (0-0.3); HEMATOCRIT 30.1 % (38.0-50.0); HEMOGLOBIN 9.3 G/DL (12.5-16.6); IMMATURE GRANULOCYTE (%) 0.5 % (0.0-0.7); LYMPHOCYTE COUNT 0.7 K/uL (1.0-2.8); MCH 31.4 PG (29.0-34.0); MCHC 30.9 G/DL (30.0-36.0); MCV 101.7 FL (86-99); MONOCYTE (%) 7.3 % (3-12); MONOCYTE COUNT 0.5 K/uL (0-0.8); NEUTROPHIL (%) 78.3 % (45-76); NEUTROPHIL COUNT 5.1 K/uL (1.8-6.4); PLATELET COUNT 176 K/uL (156-360); RBC DIS.WIDTH-CV 17.2 % (11.8-14.6); RED BLOOD COUNT 2.96 M/uL (4.00-5.50); WHITE BLOOD COUNT 6.6 K/uL (4.1-10.2)
[2018-04-16 06:33] LABS: ALBUMIN 3.4 G/DL (3.2-4.8); CHLORIDE 93 MEQ/L (99-109); CREATININE 1.4 MG/DL (0.6-1.3); GFR ESTIMATE (CALCULATED) 56 mL/min/ (58.99-99999); GLUCOSE 135 mg/dL (70-99); MAGNESIUM 1.8 mg/dl (1.3-2.7); PHOSPHORUS 3.6 mg/dL (2.5-4.9); SODIUM 138 MEQ/L (136-147); UREA NITROGEN (BUN) 35 mg/dL (9-23)
[2018-04-16 07:29] VITALS: BP 118/57
[2018-04-16 11:24] VITALS: BP 109/56
[2018-04-16 16:36] VITALS: BP 115/69
[2018-04-16 19:45] VITALS: BP 122/57
[2018-04-17] VITALS (7 sets, daily range): BP systolic 91–128; BP diastolic 53–90
[2018-04-17 06:01] LABS: BASOPHIL COUNT 0.1 K/uL (0-0.1); EOSINOPHIL COUNT 0.1 K/uL (0-0.3); HEMATOCRIT 28.6 % (38.0-50.0); HEMOGLOBIN 9.2 G/DL (12.5-16.6); IMMATURE GRANULOCYTE (%) 0.3 % (0.0-0.7); LYMPHOCYTE (%) 10.3 % (15-42); LYMPHOCYTE COUNT 0.6 K/uL (1.0-2.8); MCH 32.7 PG (29.0-34.0); MCHC 32.2 G/DL (30.0-36.0); MCV 101.8 FL (86-99); MONOCYTE (%) 6.4 % (3-12); MONOCYTE COUNT 0.4 K/uL (0-0.8); NEUTROPHIL COUNT 4.7 K/uL (1.8-6.4); PLATELET COUNT 146 K/uL (156-360); RBC DIS.WIDTH-CV 17.3 % (11.8-14.6); RBC DIS.WIDTH-SD 64.2 % (39-53); RED BLOOD COUNT 2.81 M/uL (4.00-5.50); WHITE BLOOD COUNT 5.9 K/uL (4.1-10.2)
[2018-04-17 06:29] LABS: ALBUMIN 3.3 G/DL (3.2-4.8); CREATININE 1.3 MG/DL (0.6-1.3); GFR ESTIMATE (CALCULATED) > 59 mL/min/ (58.99-99999); GLUCOSE 177 mg/dL (70-99); MAGNESIUM 1.7 mg/dl (1.3-2.7); PHOSPHORUS 3.9 mg/dL (2.5-4.9); POTASSIUM 3.6 MEQ/L (3.7-5.4); UREA NITROGEN (BUN) 30 mg/dL (9-23)
[2018-04-17 13:41] LABS: CREATININE 1.2 MG/DL (0.6-1.3); GFR ESTIMATE (CALCULATED) > 59 mL/min/ (58.99-99999); POTASSIUM 3.9 MEQ/L (3.7-5.4); UREA NITROGEN (BUN) 31 mg/dL (9-23)
[2018-04-17 14:08] LABS: CARBON DIOXIDE (BICARBONATE) > 40.0 MEQ/L (20-31); CHLORIDE 87 MEQ/L (99-109); GLUCOSE 111 mg/dL (70-99); SODIUM 141 MEQ/L (136-147)
[2018-04-17 14:13] LABS: SODIUM 139 MEQ/L (136-147)
[2018-04-17 14:15] LABS: CHLORIDE 89 MEQ/L (99-109)
[2018-04-18 02:39] VITALS: BP 98/56
[2018-04-18 06:54] LABS: BASOPHIL (%) 0.9 % (0-1); BASOPHIL COUNT 0.1 K/uL (0-0.1); EOSINOPHIL (%) 2.8 % (0-5); EOSINOPHIL COUNT 0.2 K/uL (0-0.3); HEMATOCRIT 30.7 % (38.0-50.0); HEMOGLOBIN 9.5 G/DL (12.5-16.6); IMMATURE GRANULOCYTE (%) 0.5 % (0.0-0.7); LYMPHOCYTE (%) 10.4 % (15-42); LYMPHOCYTE COUNT 0.7 K/uL (1.0-2.8); MCH 32.1 PG (29.0-34.0); MCHC 30.9 G/DL (30.0-36.0); MCV 103.7 FL (86-99); MONOCYTE (%) 8.6 % (3-12); MONOCYTE COUNT 0.6 K/uL (0-0.8); NEUTROPHIL (%) 76.8 % (45-76); PLATELET COUNT 168 K/uL (156-360); RBC DIS.WIDTH-CV 17.6 % (11.8-14.6); RBC DIS.WIDTH-SD 66.4 % (39-53); RED BLOOD COUNT 2.96 M/uL (4.00-5.50); WHITE BLOOD COUNT 6.5 K/uL (4.1-10.2)
[2018-04-18 07:05] VITALS: BP 115/56
[2018-04-18 07:22] LABS: ALBUMIN 3.5 G/DL (3.2-4.8); CHLORIDE 84 MEQ/L (99-109); CREATININE 1.4 MG/DL (0.6-1.3); GFR ESTIMATE (CALCULATED) 56 mL/min/ (58.99-99999); PHOSPHORUS 4.9 mg/dL (2.5-4.9); POTASSIUM 3.4 MEQ/L (3.7-5.4); SODIUM 139 MEQ/L (136-147); UREA NITROGEN (BUN) 27 mg/dL (9-23)
[2018-04-18 07:26] LABS: GLUCOSE 80 mg/dL (70-99)
[2018-04-18 07:27] LABS: CARBON DIOXIDE (BICARBONATE) > 40.0 MEQ/L (20-31)
[2018-04-18 11:05] VITALS: BP 103/55
[2018-04-18 15:55] VITALS: BP 105/57
[2018-04-18 19:21] VITALS: BP 104/51
[2018-04-18 21:09] VITALS: BP 110/57
[2018-04-19] VITALS (7 sets, daily range): BP systolic 100–119; BP diastolic 50–59
[2018-04-19 06:33] LABS: BASOPHIL (%) 1.1 % (0-1); BASOPHIL COUNT 0.1 K/uL (0-0.1); EOSINOPHIL (%) 3.5 % (0-5); EOSINOPHIL COUNT 0.2 K/uL (0-0.3); HEMATOCRIT 28.6 % (38.0-50.0); HEMOGLOBIN 8.9 G/DL (12.5-16.6); IMMATURE GRANULOCYTE (%) 0.4 % (0.0-0.7); LYMPHOCYTE COUNT 0.6 K/uL (1.0-2.8); MCHC 31.1 G/DL (30.0-36.0); MCV 102.9 FL (86-99); MONOCYTE (%) 7.7 % (3-12); MONOCYTE COUNT 0.4 K/uL (0-0.8); NEUTROPHIL (%) 76.3 % (45-76); NEUTROPHIL COUNT 4.2 K/uL (1.8-6.4); PLATELET COUNT 139 K/uL (156-360); RBC DIS.WIDTH-SD 64.5 % (39-53); RED BLOOD COUNT 2.78 M/uL (4.00-5.50); WHITE BLOOD COUNT 5.5 K/uL (4.1-10.2)
[2018-04-19 07:03] LABS: ALBUMIN 3.4 G/DL (3.2-4.8); CHLORIDE 82 MEQ/L (99-109); CREATININE 1.5 MG/DL (0.6-1.3); GFR ESTIMATE (CALCULATED) 52 mL/min/ (58.99-99999); PHOSPHORUS 5.2 mg/dL (2.5-4.9); POTASSIUM 3.2 MEQ/L (3.7-5.4); SODIUM 137 MEQ/L (136-147); UREA NITROGEN (BUN) 28 mg/dL (9-23)
[2018-04-19 07:04] LABS: CARBON DIOXIDE (BICARBONATE) > 40.0 MEQ/L (20-31); GLUCOSE 122 mg/dL (70-99)
[2018-04-20 03:58] VITALS: BP 102/57
[2018-04-20 06:32] LABS: CARBON DIOXIDE (BICARBONATE) > 40.0 MEQ/L (20-31); CHLORIDE 83 MEQ/L (99-109); CREATININE 1.6 MG/DL (0.6-1.3); GFR ESTIMATE (CALCULATED) 48 mL/min/ (58.99-99999); GLUCOSE 107 mg/dL (70-99); POTASSIUM 3.1 MEQ/L (3.7-5.4); SODIUM 138 MEQ/L (136-147); UREA NITROGEN (BUN) 31 mg/dL (9-23)
[2018-04-20 06:45] VITALS: BP 100/54
[2018-04-20 11:20] VITALS: BP 103/51
[2018-04-20 16:08] LABS: COMMENTS - BLOOD GASES A+C+; DEVICE NC; O2 FLOW 2 L/MIN; SITE RR; TOTAL RESP RATE 20 resp/min
[2018-04-20 16:09] LABS: BASE EXCESS 22.1 mEq/L (-3 to +3); BICARBONATE 48.8 mEq/L (22-26); CARBOXY HGB 2.7 % (0-5); METHEMOGLOBIN 0.9 % (0-1.5); PCO2 67 mm Hg (35-45); PO2 73 mm Hg (80-100); pH 7.47 (7.35-7.45)
[2018-04-20 16:16] LABS: HEMATOCRIT 29.7 % (38.0-50.0); HEMOGLOBIN 9.3 G/DL (12.5-16.6); MCH 32.3 PG (29.0-34.0); MCHC 31.3 G/DL (30.0-36.0); MCV 103.1 FL (86-99); PLATELET COUNT 133 K/uL (156-360); RBC DIS.WIDTH-CV 16.7 % (11.8-14.6); RBC DIS.WIDTH-SD 63.2 % (39-53); RED BLOOD COUNT 2.88 M/uL (4.00-5.50); WHITE BLOOD COUNT 5.6 K/uL (4.1-10.2)
[2018-04-20 16:37] LABS: TROP-I INTERPRETATION NEGATIVE; TROPONIN-I 0.05 ng/mL (0.0-0.30)
[2018-04-20 16:39] LABS: CHLORIDE 84 MEQ/L (99-109); CREATININE 1.6 MG/DL (0.6-1.3); GFR ESTIMATE (CALCULATED) 48 mL/min/ (58.99-99999); GLUCOSE 116 mg/dL (70-99); POTASSIUM 3.4 MEQ/L (3.7-5.4); SODIUM 137 MEQ/L (136-147); UREA NITROGEN (BUN) 33 mg/dL (9-23)
[2018-04-20 16:40] LABS: CARBON DIOXIDE (BICARBONATE) > 40.0 MEQ/L (20-31)
[2018-04-20 19:40] VITALS: BP 98/57
[2018-04-20 23:09] VITALS: BP 112/60
[2018-04-21 03:58] VITALS: BP 113/56
[2018-04-21 07:25] LABS: CHLORIDE 85 MEQ/L (99-109); CREATININE 1.4 MG/DL (0.6-1.3); GFR ESTIMATE (CALCULATED) 56 mL/min/ (58.99-99999); POTASSIUM 3.7 MEQ/L (3.7-5.4); SODIUM 134 MEQ/L (136-147); UREA NITROGEN (BUN) 35 mg/dL (9-23)
[2018-04-21 07:26] LABS: GLUCOSE 188 mg/dL (70-99)
[2018-04-21 08:35] VITALS: BP 103/56
[2018-04-21 12:28] VITALS: BP 110/61
[2018-04-21] MEDS ORDERED: FOLIC ACID1 MG PO (14:27)
[2018-04-21] MEDS ORDERED: ALLOPURINOL100 MG PO (14:27)
[2018-04-21] MEDS ORDERED: SERTRALINE HCL100 MG PO (14:27)
[2018-04-21] MEDS ORDERED: K-DUR20 MEQ PO (14:27)
[2018-04-21] MEDS ORDERED: SPIRONOLACTONE50 MG PO (14:27)
[2018-04-21] MEDS ORDERED: Thiamine,Vitamin B1 PO (14:27)
[2018-04-21] MEDS ORDERED: LEVOTHYROXINE25 MCG PO (14:27)
[2018-04-21 16:54] VITALS: BP 112/89
[2018-04-21 19:44] VITALS: BP 126/63
[2018-04-21 23:37] VITALS: BP 121/72
[2018-04-22 04:08] VITALS: BP 92/51
[2018-04-22 07:20] VITALS: BP 110/58
[2018-04-22 11:00] VITALS: BP 114/61
[2018-04-22 11:25] LABS: CHLORIDE 88 MEQ/L (99-109); CREATININE 1.3 MG/DL (0.6-1.3); GFR ESTIMATE (CALCULATED) > 59 mL/min/ (58.99-99999); GLUCOSE 180 mg/dL (70-99); POTASSIUM 4.2 MEQ/L (3.7-5.4); SODIUM 132 MEQ/L (136-147); UREA NITROGEN (BUN) 39 mg/dL (9-23)
== END 2018-04-22 16:10 | disposition home health service (06) | DRG 291 ==
LOC: EME 14:42 → 5EAST 17:00 → EDOF 17:00 → ENRESERV 17:15 → 5EAST 20:33 → ENPENDDIS 04-21 17:00 → 5EAST 04-22 16:10
PROVIDERS: Emergency Medicine Emergency Medical Services; Family Medicine; Hospitalist; Internal Medicine Nephrology
PROC: 5A09357 Assistance with Respiratory Ventilation, Less than 24 Consecutive Hours, Continuous Positive Airway Pressure (ICD-10-PCS; principal; 2018-04-08)
DX: I13.0 Hypertensive heart and chronic kidney disease with heart failure and stage 1 through stage 4 chronic kidney disease, or unspecified chronic kidney disease (principal); I50.23 Acute on chronic systolic (congestive) heart failure; E11.22 Type 2 diabetes mellitus with diabetic chronic kidney disease; N18.3 Chronic kidney disease, stage 3 (moderate); N17.9 Acute kidney failure, unspecified; N14.1 Nephropathy induced by other drugs, medicaments and biological substances; T50.8X5A Adverse effect of diagnostic agents, initial encounter; J96.21 Acute and chronic respiratory failure with hypoxia; J96.02 Acute respiratory failure with hypercapnia; J44.0 Chronic obstructive pulmonary disease with (acute) lower respiratory infection; J18.9 Pneumonia, unspecified organism; J44.1 Chronic obstructive pulmonary disease with (acute) exacerbation; I95.2 Hypotension due to drugs; E87.3 Alkalosis; E87.6 Hypokalemia; T50.2X5A Adverse effect of carbonic-anhydrase inhibitors, benzothiadiazides and other diuretics, initial encounter; T82.857A Stenosis of other cardiac prosthetic devices, implants and grafts, initial encounter; I08.0 Rheumatic disorders of both mitral and aortic valves; Z99.81 Dependence on supplemental oxygen; I27.20 Pulmonary hypertension, unspecified; I25.10 Atherosclerotic heart disease of native coronary artery without angina pectoris; R18.8 Other ascites; K74.60 Unspecified cirrhosis of liver; D64.9 Anemia, unspecified; E66.01 Morbid (severe) obesity due to excess calories; Z68.35 Body mass index [BMI] 35.0-35.9, adult; R15.9 Full incontinence of feces; I45.10 Unspecified right bundle-branch block; G47.33 Obstructive sleep apnea (adult) (pediatric); F10.20 Alcohol dependence, uncomplicated; R32 Unspecified urinary incontinence; R80.9 Proteinuria, unspecified; E78.5 Hyperlipidemia, unspecified; Z95.1 Presence of aortocoronary bypass graft; Z87.891 Personal history of nicotine dependence
CPT/HCPCS: 36600; 71045; 71275; 74177; 78582; 80048; 80048 91; 80053; 80069; 80074; 81003; 82570; 82607; 82728; 82746; 82803; 82948; 82977; 83540; 83605; 83735; 83880; 84100; 84145 90; 84156; 84443; 84466; 84484; 84550; 85025; 85027; 85379; 85610; 85730; 87040; 93005; 93306; 93971; 94640; 94640 76; 94660; 94668; 94799; 99202; 99281; 99285; A9540; A9567; J0456; J0692; J0881; J1650; J1756; J1940; J2930; J7050; J7512